=== PATIENT | male | born 1965 | race Caucasian/White ===

== ENCOUNTER 2016-10-01 06:37 | Day surgery (SDC) | payer BC ==
[~2016-10-01 06:37] MED LIST: CLINDAMYCIN 600 MG PREMIX 50 ML IV ONE; IV START KIT ONE; LACTATED RINGERS 1,000 ML ONE
[2016-10-01] MEDS ORDERED: CLINDAMYCIN 600 MG PREMIX 50 ML IV PRN (07:00)
[2016-10-01 07:11] LABS: HEMATOCRIT 43.5 % (32.0-52.0); HEMOGLOBIN 14.7 gm/l (14.0-18.0); MEAN CELL VOLUME 86.8 fl (80.0-94.0); MEAN CORPUSCULAR HEMOGLOBIN 29.3 pg (27.0-31.0); MEAN CORPUSCULAR HGB CONC 33.8 g/dl (33.0-37.0); RED CELL DISTRIBUTION WIDTH 12.6 % (11.5-14.5)
[2016-10-01 07:37] LABS: ALB/GLOB RATIO 1.4 (>1.0); ALBUMIN 4.2 gm/dL (3.5-5.7); CALCIUM 9.1 mg/dL (8.6-10.3)
[2016-10-01] MEDS ORDERED: CEFAZOLIN SODIUM 1,000 MG VIAL ONE (07:51)
[2016-10-01] MEDS ORDERED: SODIUM CHLORIDE 0.9% FLUSH 10 ML ONE (07:51)
[2016-10-01] MEDS ORDERED: LIDOCAINE 1% (PRES FREE) 30 ML VIAL ONE ×2 (07:51→08:05)
[2016-10-01] MEDS ORDERED: BUPIVACAINE 0.5% (PRES FREE) 30 ML VIAL ONE (07:51)
[2016-10-01] MEDS ORDERED: FENTANYL 100 MCG/2 ML VIAL ONE (08:02)
[2016-10-01] MEDS ORDERED: MIDAZOLAM HCL 5 MG/5 ML VIAL ONE (08:02)
[2016-10-01] MEDS ORDERED: PROPOFOL 20 ML IV ONE ×3 (08:24→09:11)
[2016-10-01] MEDS ORDERED: FAMOTIDINE 10 MG/ML 2ML VIAL ONE (08:24)
[2016-10-01] MEDS ORDERED: METOCLOPRAMIDE HCL 5 MG/ML 2ML VIAL ONE (08:24)
[2016-10-01] MEDS ORDERED: DIPHENHYDRAMINE HCL 50 MG/1 ML VIAL ONE (08:24)
[2016-10-01] MEDS ORDERED: MEPERIDINE 25 MG/ML SYRINGE ONE (08:39)
[2016-10-01] MEDS ORDERED: LABETALOL HCL 5 MG/ML 20ML VIAL IV PRN (09:30)
[2016-10-01] MEDS ORDERED: MEPERIDINE 25 MG/ML SYRINGE IV PRN (09:30)
[2016-10-01] MEDS ORDERED: ATROPINE SULFATE 0.4 MG/1 ML VIAL IV PRN (09:30)
[2016-10-01] MEDS ORDERED: ONDANSETRON 4 MG/2ML 2 ML VIAL IV PRN ×2 (09:30→10:38)
[2016-10-01] MEDS ORDERED: PROMETHAZINE HCL 25 MG/ML VIAL IM PRN (09:30)
[2016-10-01] MEDS ORDERED: MORPHINE SULFATE 4 MG/ML SYRINGE IV PRN (09:30)
[2016-10-01] MEDS ORDERED: LACTATED RINGERS 1,000 ML IV SCH (09:30)
[2016-10-01] MEDS ORDERED: NALOXONE HCL 0.4 MG/ML VIAL IV PRN (09:30)
[2016-10-01] MEDS ORDERED: KETOROLAC TROMETHAMINE 30 MG/ML 1 ML VIAL IV PRN (10:38)
[2016-10-01] MEDS ORDERED: HYDROMORPHONE HCL 1 MG/ML SYRINGE IV PRN (10:38)
[2016-10-01] MEDS ORDERED: OXYCODONE HCL 5 MG TABLET PO PRN (10:38)
[2016-10-01] MEDS ORDERED: OXYCODONE HCL 5 MG TABLET ONE (11:28)
--- NOTE | 2016-10-01 19:33 | OP ---
JESSICA SANTANA [id number] DATE OF OPERATION: October 01, 2016 PREOPERATIVE DIAGNOSIS: Right inguinal hernia. POSTOPERATIVE DIAGNOSIS: Right inguinal hernia. PROCEDURE: REPAIR OF RIGHT INGUINAL HERNIA WITH MESH PLUG AND PATCH. SURGEON: J Luis Cohn M.D. INTERNAL COMBUSTION ENGINE SUBASSEMBLER: Patric Viveros ANESTHESIA: General anesthesia by Evelyn Cook C.R.N.A., monitored anesthesia care converted to general. INDICATIONS: This is a 51-year-old male who presents for elective repair of a right inguinal hernia. DESCRIPTION: With informed consent he was taken to the operating room. He was laid supine on the operating room table. General anesthesia was administered. The right groin was prepped and draped in the usual fashion. Local anesthetic was administered in the skin and subcutaneous tissue. A field block was applied using a combination of lidocaine and Marcaine. The skin was incised with the knife. Electrocautery was used to divide the subcutaneous fat. We dissected down to the external oblique. This was opened with a knife and Metzenbaum scissors in a fiber splitting technique. There was quite a bit of fatty lipomatous tissue along with the cord structures. This was encircled at the level of the pubic tubercle with a Samaria drain. The patient had some coughing during the procedure. We could see that the defect appeared to be in the lipomatous fat, probably an indirect sac. We actually were having difficulty doing the procedure because of his coughing, and we decided to actually place an LMA to control his breathing. This was done by anesthesia. I dissected the lipomatous fat and indirect sac free to the level of the internal ring. These were ligated and excised with #2-0 Vicryl stick ties. It appeared that there was some degree of direct defect as well. This actually was fairly small. I opened this up using electrocautery. A large mesh plug was placed in the preperitoneal plane. It was secured at multiple points with #2-0 Vicryl. A flat piece of mesh was then placed across the floor of the canal. The medial aspect overlapped the pubic tubercle. A slit was cut laterally and this was placed around the cord structures recreating an internal ring. It was secured together laterally with the Vicryl sutures. This was placed up beneath the external oblique. The wound was irrigated. We appeared to have adequate hemostasis. We did appear to have quite a bit of tethering and tension on the ilioinguinal nerve and decided to lyse this rather than risk chronic pain. The external oblique was reapproximated with #2-0 Vicryl. Some additional Marcaine was infiltrated beneath the external oblique. Juma's fascia was reapproximated with #3-0 Vicryl. The skin was closed with a running subcuticular #4-0 Monocryl. Mastisol and SteriStrips were placed. Sterile dressings were applied. He tolerated the procedure and was taken to the recovery room in stable condition. Note was made that needle, instrument and lap counts were reported as correct at time of closure. Cc: Kristine Wu
== END 2016-10-01 12:35 | disposition home or self-care (01) ==
LOC: SDC 06:37
PROVIDERS: ATTEND Surgery
PROC: 0YU50JZ Supplement Right Inguinal Region with Synthetic Substitute, Open Approach (ICD-10-PCS; principal; 2016-10-01)
DX: K40.90 Unilateral inguinal hernia, without obstruction or gangrene, not specified as recurrent (principal); Z88.1 Allergy status to other antibiotic agents
CPT/HCPCS: 85027; 80053; 49505; J0690; J1200; J2175 ×2; J3010; A9270; J2765; J2250; J2001 ×2; J2405; J7120